=== PATIENT | male | born 1955 | race Caucasian/White ===

== ENCOUNTER 2017-12-04 12:20 | Emergency (ER) | payer OTHER ==
[~2017-12-04] VITALS: Ht 180.3 cm; Wt 90.7 kg
[2017-12-04 13:00] LABS: ABSOLUTE BASOPHILS 0.1 thou/uL (0.0-0.2); ABSOLUTE LYMPHOCYTES 1.8 thou/uL (0.8-5.3); ABSOLUTE MONOCYTES 0.6 thou/uL (0.0-1.2); ABSOLUTE NEUTROPHILS 8.4 thou/uL (1.6-8.1); BASOPHILS 0.8 %; EOSINOPHILS 0.1 %; HEMOGLOBIN 15.8 gm/dL (14.0-18.0); LYMPHOCYTES 16.9 %; MCH 31.9 pg (26.0-34.0); MCHC 33.5 g/dL (28.0-37.0); MCV 95.2 fL (80.0-100.0); MONOCYTES 5.1 %; MPV 6.8 fl. (7.2-11.1); NUCLEATED RBCS 0 /100WBC; PLATELET COUNT* 261 thou/uL (150-400); POLYS 77.1 %; RBC 4.94 mil/uL (4.50-6.00); RDW-CV 13.2 % (10.5-14.5); WBC 10.9 thou/uL (4.0-11.0)
[2017-12-04 13:09] LABS: ANION GAP 7 mmol/L (7-16); BUN 16 mg/dL (7-18); CALCIUM 9.1 mg/dL (8.5-10.1); CHLORIDE 100 mmol/L (98-107); CO2 29 mmol/L (21-32); GLUCOSE 173 mg/dL (70-99); POTASSIUM 4.1 mmol/L (3.5-5.1); SODIUM 136 mmol/L (136-145)
[2017-12-04 13:16] LABS: ALBUMIN 3.8 g/dL (3.4-5.0); ALKALINE PHOSPHATASE 70 U/L (46-116); SGOT 19 U/L (15-37); SGPT 33 U/L (30-65); TOTAL BILIRUBIN 0.2 mg/dL (<0.1-1.0); TOTAL PROTEIN 7.6 g/dL (6.4-8.2); TROPONIN-I LEVEL <0.06 ng/mL (<0.06)
[2017-12-04 14:15] VITALS: BP 153/96
--- NOTE | 2017-12-05 10:11 | EKG ---
[place] [address] ELECTROCARDIOGRAM REPORT Name: ROSHNICarlosLEYDA Mason [facility]: [facility]#: [id number] Admission: 12/04/17 Attend Phys: Discharge: 12/04/17 Date of : 59 Report #: [id number] THIS REPORT FOR: //name// [facility] ED Test Date: 2017-12-04 Test Time: 12:49:35 Pat Name: LEYDA POWERS Department: Room: Gender: M [employer]: : 1955 Requested By: Mireille Eason Order Number: [id number] MD: Migue Garcia Measurements Intervals [place] Rate: 81 P: 46 [place]: 147 QRS: 9 QRSD: 94 T: 33 QT: 362 QTc: 421 Interpretive Statements Sinus rhythm Probable left atrial enlargement No previous ECG available for comparison Electronically Signed On 12-05-2017 10:11:12 CDT by Migue Garcia [email or web address] <ELECTRONICALLY SIGNED> By: Migue Garcia MD, [facility] 12/05/17 1011 1249 1249 Migue Garcia MD, FACC /EPI
== END 2017-12-04 14:18 | disposition home or self-care (01) ==
LOC: M.ERS 12:20
PROVIDERS: Nurse Practitioner Family
DX: R03.0 Elevated blood-pressure reading, without diagnosis of hypertension (principal); R73.9 Hyperglycemia, unspecified; F17.210 Nicotine dependence, cigarettes, uncomplicated

== ENCOUNTER → 2020-05-06 | Outpatient (CLI) | payer OTHER | LOC: M.CT 09:00 | PROVIDERS: ATTEND Family Medicine | DX: Z13.6 Encounter for screening for cardiovascular disorders (principal) ==